=== PATIENT | female | born 2000 | race Hispanic/Latino ===

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

== ENCOUNTER 2020-01-04 02:01 | Emergency (ER) | payer MEDICAID, OTHER ==
[2020-01-04] MEDS ORDERED: ACETAMINOPHEN EXTRA STRENGTH 500 MG TABLET ONE (02:10)
[2020-01-04 02:53] LABS: RAPID GROUP A STREP NEGATIVE (NEGATIVE)
== END 2020-01-04 03:17 | disposition home or self-care (01) ==
LOC: EDH 02:01
DX: R50.9 Fever, unspecified (principal); R03.0 Elevated blood-pressure reading, without diagnosis of hypertension; J02.9 Acute pharyngitis, unspecified; R10.9 Unspecified abdominal pain
CPT/HCPCS: 87804; 87880

== ENCOUNTER 2020-02-21 22:13 | Emergency (ER) | payer OTHER ==
[2020-02-21 22:35] LABS: APPEARANCE,URINE Clear (CLEAR); BILIRUBIN,URINE Negative (NEGATIVE); COLOR,URINE Yellow (YELLOW); GLUCOSE, URINE (UA) Negative (NEGATIVE); KETONES,URINE Trace mg/dL (NEGATIVE); LEUKOCYTE ESTERASE ,URINE Large (NEGATIVE); NITRATE,URINE Negative (NEGATIVE); OCCULT BLOOD,URINE Negative (NEGATIVE); PH,URINE 5.5 (5.0-8.0); PROTEIN,URINE Negative (NEGATIVE)
[2020-02-21 22:38] LABS: HCG,QUAL RESULT NEGATIVE (NEGATIVE)
[2020-02-21 23:05] LABS: BACTERIA,URINE Few /HPF (None Seen); RBC,URINE 0-1 /HPF (0-1)
[2020-02-21] MEDS ORDERED: DiphenhydrAMINE HCL 50 MG/ML VIAL ONE (23:16)
[2020-02-21] MEDS ORDERED: PROCHLORPERAZINE EDISYLATE 10 MG/2 ML VIAL ONE (23:16)
[2020-02-21] MEDS ORDERED: CEFTRIAXONE SODIUM 1 GM ONE (23:41)
[2020-02-21] MEDS ORDERED: LIDOCAINE HCL-MPF 1% 2ML VIAL ONE (23:41)
== END 2020-02-22 00:11 | disposition home or self-care (01) ==
LOC: EDH 22:13
DX: N39.0 Urinary tract infection, site not specified (principal)
CPT/HCPCS: 81001; 81025; 87088; 96372; 99283; J0696; J0780; J1200; J3490

== ENCOUNTER 2020-09-21 21:03 | Emergency (ER) | payer SELFPAY ==
[2020-09-21 21:24] LABS: APPEARANCE,URINE Clear (CLEAR); BILIRUBIN,URINE Negative (NEGATIVE); COLOR,URINE Yellow (YELLOW); GLUCOSE, URINE (UA) Negative (NEGATIVE); KETONES,URINE Negative (NEGATIVE); LEUKOCYTE ESTERASE ,URINE Negative (NEGATIVE); NITRATE,URINE Negative (NEGATIVE); OCCULT BLOOD,URINE Negative (NEGATIVE); PH,URINE 6.5 (5.0-8.0); PROTEIN,URINE Negative (NEGATIVE)
[2020-09-21] MEDS ORDERED: CEPHALEXIN 500 MG CAPSULE ONE (21:28)
[2020-09-21] MEDS ORDERED: PHENAZOPYRIDINE HCL 200 MG TABLET ONE (21:29)
== END 2020-09-21 22:15 | disposition home or self-care (01) ==
LOC: EDH 21:03
DX: N39.0 Urinary tract infection, site not specified (principal)
CPT/HCPCS: 81003; 81025; 87088